=== PATIENT | male | born 1985 | race Caucasian/White ===

== ENCOUNTER 2019-09-24 12:14 | Emergency (ER) | payer BC, SELFPAY ==
[2019-09-24 12:24] VITALS: BP 133/100; PULSE 101; RESP 18; TEMP 36.6; O2SAT 98
--- NOTE | 2019-09-24 12:42 | ED.DENTAL ---
HPI - Dental/Oral General Chief complaint: Dental/Oral Stated complaint: dental pain Time Seen by Provider: 09/24/19 12:35 Source: patient and RN notes reviewed Mode of arrival: ambulatory Limitations: no limitations History of Present Illness HPI Narrative: Patient presents today complaining of right lower dental pain x2 weeks. Symptoms worsened since yesterday, and now include right lower jaw swelling. Denies fever, shortness of breath, difficulty swallowing. Currently rates pain 8/10 and has been taking Tylenol without relief. No recent antibiotic use. Patient is scheduled to see a dentist in 4 days. MD Complaint: tooth pain Related Data Home Medications Medication Instructions Recorded Confirmed duloxetine 60 mg PO DAILY 09/24/19 09/24/19 gabapentin 300 mg PO DAILY 09/24/19 09/24/19 nabumetone 500 mg PO DAILY 09/24/19 09/24/19 phentermine 30 mg PO DAILY 09/24/19 09/24/19 quetiapine 300 mg PO DAILY 09/24/19 09/24/19 Allergies Allergy/AdvReac Type Severity Reaction Status Date / Time No Known Allergies Allergy Verified 09/24/19 12:32 Review of Systems Review of Systems: Narrative: CONSTITUTIONAL: Denies body aches, fever, chills, or sweats. EYES: Denies visual changes, redness, or discharge. ENT: Denies rhinorrhea, congestion, sore throat, or otalgia. +Right lower dental pain and facial swelling CARDIOVASCULAR: Denies chest pain, palpitations, or edema. RESPIRATORY: Denies cough or dyspnea. GASTROINTESTINAL: Denies abdominal pain, nausea, vomiting, or diarrhea. GENITOURINARY: Denies dysuria or hematuria. SKIN: Denies rash, itching, or wounds. MUSCULOSKELETAL: Denies back pain, joint pain, or myalgia. NEUROLOGIC: Denies headache, numbness, tingling, or weakness. PSYCH: Denies depression or anxiety. [facility] Past Medical History Medical History (Updated 09/24/19 @ 12:49 by Myriam Alaniz, [employer], ) Bipolar disorder Comments At time of signature, I have reviewed and agree with nursing past medical, surgical, social and family history unless otherwise noted. Please see nursing chart for further information. There is no relevant family history pertinent to the presenting complaint Exam Narrative: Exam Narrative: GENERAL: Well-appearing, well-nourished, and in no acute distress. HEAD: Normocephalic, atraumatic. EYES: EOMI. No redness or drainage. Conjunctivae normal. ENT: Mucous membranes pink and moist. Throat normal. Uvula midline. Tooth #30 is tender to percussion with swelling of the gumline. Tooth #31 is broken off at the gumline. Right submandibular lymphadenopathy. NECK: Normal AROM. Supple. CHEST: No respiratory distress. EXTREMITIES: Normal range of motion. No edema. SKIN: Warm, dry, no rash. Capillary refill normal. Normal skin turgor. NEURO: No focal deficits. Alert and oriented x3. Gait steady. PSYCH: Normal affect. No signs of depression or anxiety. Course Vital Signs Vital signs: Vital Signs Temperature 97.9 F 09/24/19 12:24 Pulse Rate 101 H 09/24/19 12:24 Respiratory Rate 18 09/24/19 12:24 Blood Pressure 133/100 H 09/24/19 12:24 Pulse Oximetry 98 09/24/19 12:24 Temperature 97.9 F 09/24/19 12:24 Pulse Rate 101 H 09/24/19 12:24 Respiratory Rate 18 09/24/19 12:24 Blood Pressure 133/100 H 09/24/19 12:24 Pulse Oximetry 98 09/24/19 12:24 Reviewed. Pt has been instructed to follow up with his PCP regarding his elevated blood pressure today. MDM - Dental/Oral Differential Diagnosis Differential diagnosis: Likely gingival abscess, dental caries, toothache and dental abscess Critical Care Time Critical Care Time Critical Care Time: No Discharge Plan Discharge Clinical Impression: Dental abscess Patient Disposition: Home, Self-Care Condition: Stable Instructions: Antibiotic Form, Dental Abscess (ED) Additional Instructions: Please take the Amoxicillin as prescribed until gone. Continue Tylenol for pain. Follow-up with your dent
== END 2019-09-24 12:48 | disposition home or self-care (01) ==
PROVIDERS: Emergency Provider Nurse Practitioner; PCP Internal Medicine
DX: K04.7 Periapical abscess without sinus (principal); F31.9 Bipolar disorder, unspecified; R03.0 Elevated blood-pressure reading, without diagnosis of hypertension
CPT/HCPCS: 99203; G0463